=== PATIENT | female | born 1975 | race Caucasian/White ===

== ENCOUNTER 2018-10-27 07:40 | Day surgery (SDC) | payer OTHER | END 2018-10-27 11:10 | disposition home or self-care (01) | LOC: AMB-ENDOS 07:40 | DX: K62.5 Hemorrhage of anus and rectum (principal); Z12.11 Encounter for screening for malignant neoplasm of colon ==

== ENCOUNTER 2021-06-26 10:03 | Outpatient (CLI) | payer OTHER | END 2021-06-26 10:12 | disposition home or self-care (01) | LOC: SONOGRAMA 10:03 | PROVIDERS: ATTEND Pathology Anatomic Pathology & Clinical Pathology | DX: E04.2 Nontoxic multinodular goiter (principal) ==